=== PATIENT | female | born 1960 | race Caucasian/White ===

== ENCOUNTER 2019-11-10 07:38 | Outpatient (CLI) | payer OTHER, SELFPAY ==
--- NOTE | 2019-11-10 08:20 | XR_ITS ---
WS: [id number] CHEST 2 VIEWS HISTORY: chronic cough COMPARISON: None available. Lungs: Well aerated lungs with an area of subsegmental atelectasis or scar over the RIGHT costophreni c angle. No pneumonia. Normal vasculature. Cardiac size: Normal. Mediastinum/Aorta: Mild atherosclerosis aorta. Bones: Mild RIGHT convex curvature thoracic spine with mild to moderate spondylitic changes throughou t the thoracic spine. XR/XR chest 2V* [id number] IMPRESSION: 1. Minimal scar or subsegmental atelectasis at the RIGHT costophrenic angle. 2. No pneumonia. 3. Mild atherosclerosis aorta.
== END 2019-11-10 07:39 | disposition home or self-care (01) ==
LOC: RADWPI 07:44
PROVIDERS: Family Provider Family Medicine; PCP Family Medicine; Visit Provider Family Medicine
DX: R05 Cough (principal); I70.0 Atherosclerosis of aorta
CPT/HCPCS: 71046

== ENCOUNTER 2019-11-26 13:13 | Outpatient (CLI) | payer OTHER, SELFPAY ==
--- NOTE | 2019-11-26 13:30 | US_ITS ---
WS: [id number] Ultrasound of the subcutaneous tissue overlying the sternum, 11/26/2019 Clinical Data: mass of anterior chest - neg xrays Comparison: None. Findings: Only normal subcutaneous tissue could be seen. There are no cysts, masses or abscess. US/US chest [id number] Impression: Normal subcutaneous ultrasound of the tissue overlying the sternum.
== END 2019-11-26 13:14 | disposition home or self-care (01) ==
LOC: US 13:18
PROVIDERS: PCP Family Medicine; Visit Provider Family Medicine
DX: R22.2 Localized swelling, mass and lump, trunk (principal)
CPT/HCPCS: 76604

== ENCOUNTER → 2019-12-07 12:06 | Outpatient (BNVA) | payer OTHER, SELFPAY | PROVIDERS: PCP Family Medicine; Visit Provider Family Medicine | DX: Z13.6 Encounter for screening for cardiovascular disorders (principal) | CPT/HCPCS: 80053; 80061; 85025 ==

== ENCOUNTER 2021-05-14 08:47 | Outpatient (CLI) | payer OTHER, SELFPAY ==
--- NOTE | 2021-05-14 08:55 | MM_ITS ---
WS: [id number] BILATERAL 3D TOMOSYNTHESIS DIGITAL SCREENING MAMMOGRAPHY WITH CAD CLINICAL INFORMATION: SCREENING HISTORY: Screening mammogram. No current complaints. COMPARISON: None. TECHNIQUE: Bilateral CC and MLO views. FINDINGS: Scattered fibroglandular densities bilaterally. Lucent centered calcifications LEFT breast. No suspic ious focal mass, asymmetry, calcifications, or architectural distortion. No evidence of malignancy. MM/[place] [id number] IMPRESSION: BI-RADS: 2-Benign FOLLOW UP: 1 Year Follow-up Recommend return to annual screening mammography.
== END 2021-05-14 08:48 | disposition home or self-care (01) ==
PROVIDERS: PCP Family Medicine; Visit Provider Nurse Practitioner Family
DX: Z12.31 Encounter for screening mammogram for malignant neoplasm of breast (principal)
CPT/HCPCS: 77063; 77067

== ENCOUNTER → 2022-12-15 10:17 | Outpatient (BNVA) | payer OTHER, SELFPAY | PROVIDERS: PCP Family Medicine; Visit Provider Family Medicine | DX: R05.9 Cough, unspecified (principal); J06.9 Acute upper respiratory infection, unspecified | CPT/HCPCS: 87400; 87426 ==

== ENCOUNTER 2023-04-07 09:20 | Outpatient (CLI) | payer OTHER, SELFPAY ==
--- NOTE | 2023-04-07 09:25 | MM_ITS ---
WS: [id number] BILATERAL SCREENING DIGITAL TOMOSYNTHESIS MAMMOGRAM WITH CAD HISTORY: SCREENING COMPARISON: 05/14/2021 Bilateral CC and MLO views with tomosynthesis and synthetic mammography submitted. Computer aided det ection analyzed. Breast composition: There are scattered areas of fibroglandular density. No suspicious masses, microc alcifications or architectural distortion. Benign calcification central LEFT breast. IMPRESSION: MM/[place] [id number] BI-RADS: 2-Benign FOLLOW UP: 1 Year Follow-up
== END 2023-04-07 09:21 | disposition home or self-care (01) ==
LOC: RAD 09:20
PROVIDERS: PCP Nurse Practitioner Family; Visit Provider Nurse Practitioner Family
DX: Z12.31 Encounter for screening mammogram for malignant neoplasm of breast (principal); R92.323 Mammographic fibroglandular density, bilateral breasts; R92.1 Mammographic calcification found on diagnostic imaging of breast
CPT/HCPCS: 77063; 77067

== ENCOUNTER 2023-06-02 08:42 | Outpatient (CLI) | payer OTHER, SELFPAY ==
--- NOTE | 2023-06-02 08:48 | CT_ITS ---
WS: [id number] Examination: CT lung screening 71330 Reason for Exam: TOBACCO ABUSE Date: June 02, 2023 Comparison: None. DLP: 53.[address] scans at [facility] use at least one of these dose optimization techniques: automated e xposure control; mA and/or kV adjustment per patient size (includes targeted exams where dose is matc hed to clinical indication); or iterative reconstruction. Findings: There is no pleural effusion. There is no dense consolidation. On page 35/283 there is a 2 mm nodule in the left upper lung with an additional 2 mm nodule also in t he left upper lung on image 39/283. In the superior segment of the right upper lung there is a 2 x 3 mm nodule. This is best seen on imag e 120/283 There is no mediastinal adenopathy suspected. The heart is normal in size. There is extensive coronary artery calcification and disease. Images through the upper abdomen are grossly unremarkable. Prominent hypertrophic changes of the thor acic spine are noted. Impression: There are couple small bilateral lung nodules. L RADS 2. Benign. I recommend annual low dose lung screening. There is extensive coronary artery calcification and disease.
== END 2023-06-02 08:43 | disposition home or self-care (01) ==
LOC: RAD 08:43
PROVIDERS: PCP Nurse Practitioner Family; Visit Provider Nurse Practitioner Family
DX: Z12.2 Encounter for screening for malignant neoplasm of respiratory organs (principal); Z72.0 Tobacco use; R91.8 Other nonspecific abnormal finding of lung field; I25.10 Atherosclerotic heart disease of native coronary artery without angina pectoris
CPT/HCPCS: 71271

== ENCOUNTER 2023-09-25 08:24 | Emergency (ER) | payer OTHER, SELFPAY ==
[2023-09-25] MEDS: EPINEPHrine 0.1 mg/mL SYR 10 mL 1 MG IVP ×5 (08:37→08:52)
[2023-09-25] MEDS: calcium chloride 10% Syr 10 mL 1 GM IVP ×2 (08:38→08:50)
[2023-09-25] MEDS: sodium bicarbonate 1 mEq/mL SDV 50mL 50 MEQ IV ×2 (08:38→08:50)
[2023-09-25] MEDS: vasopressin 40 UNIT/100 ML PREMIX IV (08:43)
--- NOTE | 2023-09-25 09:02 | ED_ITS ---
HPI - General Adult General: Chief complaint: Cardiac Arrest/CPR Stated complaint: vfib Time Seen by Provider: 09/25/23 08:27 History of Present Illness: 63-year-old female brought in by EMS wit h CPR in progress. They called the for medical control and had persistent V-fib in the field they did get ROSC then had fine V-fib. They had given appropriate ACLS protocols including amiodarone 150 mg x 2 multiple rounds of epinephrine. Because she was in persistent V-fib we asked them to transport her in. On arrival here she maintains in persistent V- fib. Her arrived shortly after her reporting that she had had chest pain intermittently for the last couple of weeks they had discussed coming to the hospital and are actually and route to the hospital this morning because of persistent chest pain when he witnessed her arrest. She had approximately 5- minute downtime before EMS arrived. On arrival here CPR is in progress there is an Igel with an ET tube threaded through the Igel. She is ventilating with sats in the 90s and at pulse check had fine V-fib see the notes on the code flow sheet. Review of Systems General: Reports: ROS unobtainable due to medical condition and ROS unobtainable due to mental status Physical Exam HENMT: COMMON NORMALS: normocephalic, atraumatic and hearing grossly normal bilaterally HEAD & SCALP: normocephalic and atraumatic Resp: OTHER: Patient intubated with blood in the endotracheal tube. Intubated prior to arrival. Cardio: OTHER: No auscultated will cardiac activity. Repeatedly seen fine V-fib on the monitor. With ultrasound can see fine V-fib but no organized cardiac activity. Seen medical decision making notes. Extremity: COMMON NORMALS: normal to inspection Skin: COMMON NORMALS: no rashes or lesions noted GENERAL SKIN EXAM: no rashes or lesions noted Procedures Intubation Assist Device Used: Bougie ET Tube Size: 8 ET Tube Uncuffed: Yes Tube Secured Depth (cm): 22 Tube Secured Location: teeth Tube Placement Confirmation: equal breath sounds bilaterally Patient Tolerated Procedure: well Intubation Complications: none Additional Comments: Bougie placed to the existing ET tube Diegel and bougie removed and an 8 oh ET tube was placed over the bougie. Confirmed appropriate placement by visualizing with fiberoptic laryngoscope. Patient tolerated well. [facility] - General Adult Medical Decision Making Upon arrival patient had already been down for approximately 35 minutes. CPR was started by the . There and route to the hospital with a complaint of chest pain. She did chest pain per the intermittently for the last coup le of weeks she had declined to go to the hospital. EMS had followed typical ACLS protocols and appropriately treated with epinephrine and amiodarone 150 x 2 they did briefly achieved ROSC and then had persistent fine V-fib after. On arrival here CPR was continued using a bougie the i-gel was removed and an endotracheal tube placed the copilot was used to verify placement which looked appropriate there was significant amount of blood in the ET tube. She did ventilate well and had sats up in the 90s. Despite several rounds of epinephrine and vasopressin drip, calcium chloride and sodium bicarb patient did not respond to resuscitative efforts she was defibrillated multiple times to the appearance of fine V-fib on the monitor. Discussed with the at approximately the 1 hour darryl that she had not been responding well to any of our resuscitative efforts he was ready to cease resuscitative efforts. At this time she been down nearly an hour. I asked him to allow us 1 more cycle of compressions so we could check heart activity by ultrasound. He agreed to this. Patient was given epinephrine and defib continued 1 more round of compressions at the end of that time compressions were stopped evaluated with ultrasound we could see some unorganized activity in the heart consistent with persistent V- fib. Patient's at this time requested that we stop resuscitative effo rts. Given the fact that she had been down for at least an hour at this time and had not been responding for over 30 minutes to any resuscitative efforts this seems reasonable. Patient and patient's did understand that there was still fine fine V-fib however given her prolonged downtime he still wished us to stop resuscitative efforts. Time of 0856. No radiology studies performed this visit Critical Care Time Critical Care Time: Critical Care Time: Yes Total Critical Care Time: 35 Attestation: The high probability of a clinically significant, sudden or life threatening deterioration of the patient's cardiovascular respiratory system(s) required my full and direct attention, intervention and personal management. The critical care time is as shown. This time is in addition to time spent performing any reported procedures but includes the following: [x] Data and vital sign review and interpretation [x] Patient assessment, examination and intervention [x] Documentation [x] Medication orders and management Discharge Plan Discharge Patient Disposition: Clinical Impression: Sudden cardiac Condition: Stable Referrals: Earnestine Hartman APN [Primary Care Provider] - Coding Level of Care Code ED Boring Machine Set Up Operator Jig for Paige Batista
--- NOTE | 2023-09-25 09:15 | PC.NURSE ---
PT PRESENTS WITH [facility] CPR IN PROGRESS. WAS DRIVING TO HOSPITAL WHEN HE HAD TO INITIATE CPR AND CALL AMBULANCE. CPR HAD BEEN PERFORMED FOR 25 MINUTES, ROSC WAS ACHIEVED FOR 5 MINUTES AT 0820. [facility] GAVE 4 EPI, 4 SHOCKS, 1 ATROPINE, 2 AMIODARONE 150. PATIENT INTUBATED UPON ARRIVAL. PT ARRIVED TO ED AT 0835. EPI @ 0837, CPR CONTINUED. BICARB @ 0838. CALCIUM @ 0838. PULSE CHECK, VFIB, AND SHOCK, AND CPR RESUMED @ 0839 AMIO DRIP @ 0840 PULSE CHECK, VFIB, SHOCK, EPI, AND CRP RESUMED @ 0842 PULSE CHECK, VFIB, SHOCK, CPR RESUMED @ 0844 PULSE CHECK, VFIB, SHOCK, CPR RESUMED @ 0846 PULSE CHECK, VFIB, SHOCK, EPI, AND CPR RESUMED @ 0849 PULSE CHECK, VFIB, SHOCK, BICARB, CALCIUM CHLORIDE, AND CPR RESUMED @ 0850 PULSE CHECK, VFIB, SHOCK, EPI, AND CPR RESUMED @ 0852 PULSE CHECK, VFIB, SHOCK, AND CPR RESUMED @ 0854 CPR STOPPED @ 0856 PER . TOD 0856.
--- NOTE | 2023-09-25 15:00 | PC.NURSE ---
Patient was found to have 3 rings on her fingers, a necklace, and 3 earrings. This HS and [facility] ship's electronic warfare officer obtained these pieces of jewelry, noted items collected, and placed in a sealed container with patient label attached. HS then called pt's Daughter listed as her next of kin/person to notify, and explained to the daughter that her mother's items were in safe keeping. And when she felt up to it, to come to Emergency entrance and tell to tell the inventory audit clerk working at time to call HS. Patient's daughter verbalized understanding to HS at conclusion of phone call.
== END 2023-09-25 08:56 | disposition expired ==
PROVIDERS: Emergency Provider Family Medicine; PCP Nurse Practitioner Family
DX: I46.9 Cardiac arrest, cause unspecified (principal)
CPT/HCPCS: 31500; 96365; 96366; 96367; 96375; 99291; J0171; J0283; J2598; J3490